=== PATIENT | male | born 1995 | race Caucasian/White ===

== ENCOUNTER 2022-10-06 09:00 | Emergency (ER) | payer OTHER ==
--- OUTSIDE RECORDS SUMMARY | 2022-10-06 09:03 | XMS REPORT | Continuity of Care Document ---
:1995 Author Organization [facility] t Address [address] [facility] [address] [place] [address] Care Team Providers Name Role Phone KIANNA LOWE Attending Clinician Unavailable Linda Greer Attending Clinician Lab, Adc Fam Pob I Attending Clinician Unavailable Kianna Oliver Attending Clinician Payers Payer Name Policy Type Policy Number Effective Date Expiration Date S [facility] - [id number] 2019 00:00:00 OUT OF STATE Problems Condition Condition Condition Status Onset Resolution Last Treating Co mments Source Name Details Category Date Date Treatment Clinician Date No known No known Disease Unive rs active active ity of problems problems [facility] Allergies, Adverse Reactions, Alerts Allergy Allergy Status Severity Reaction(s) Onset Inactive Treating Comm ents Source Name Type Date Date Clinician NO KNOWN Drug Active Univers ALLERGIE Class ity of S [facility] Social History Social Habit Start Date Stop Date Quantity Comments Source Sex Assigned At Uni versity [facility] Smoking Status Start Date Stop Date Source Unknown if ever smoked [facility] Medications Ordered Filled Start Stop Current Ordering Indication Dosage Frequency Signature Comments Components Source Medication Medication Date Date Medication? Clinician (SIG) Name Name DOXYCYCLINE 2017-0 Yes 100mg Take 1 Uni vers 100 mg 9- capsule by ity of capsule 00:00: mouth 2 (two) [facility] times [facility] daily. DOXYCYCLINE 2017-0 Yes 100mg Take 1 Uni vers 100 mg 9-01 capsule by ity of capsule 00:00: mouth 2 (two) Medical times [place] daily. Procedures This patient has no known procedures. Encounters Start End Encounter Admission Attending Care Care Encounter Source Date/Time Date/Time Type Type Clinicians Facility Department ID 2020-05-24 2020-05-24 Outpatient R ANENE, [facility] [id number] Univers 13:00:00 13:00:00 KIANNA morton [facility] 2020-03-18 2020-03-18 [facility] [id number] Univers 00:00:00 00:00:00 [facility] [id number] i ty of Surgical [id number] Jose Alejandro as Specialti [id number] Oh jade 370 [facility] 2020-03-07 2020-03-07 Laboratory Lab, Adc Fam Pob I [facility] [id number] Univers 11:50:35 12:10:35 Only Kianna Lowe [facility] [id number] ity [facility] [id number] Jose Alejandro as Professio [id number] Oh jade [facility] [address] [place] [address] 2020-03-07 2020-03-07 Outpatient Esa LOWE [facility] [id number] Univers 11:40:00 11:40:00 KIANNA morton [facility] Results This patient has no known results.
[2022-10-06 09:23] LABS: Absolute Lymphocytes (CBC) 1.7 K/uL (0.7-4.9); Hematocrit 50.7 % (39.6-49.0); Lymphocytes % 12.2 % (15.3-44.8); MCV 91.8 fL (80-100); MPV 8.4 fL (7.6-11.3); RBC Red Blood Cell Count 5.53 M/uL (4.33-5.43)
[2022-10-06] MEDS ORDERED: ONDANSETRON 4 MG/2 ML VIAL ONE (09:26)
[2022-10-06] MEDS ORDERED: MORPHINE 4 MG/ML SYR ONE (09:26)
[2022-10-06] MEDS ORDERED: NA CHLORIDE 0.9% 1,000 ML ONE (09:26)
[2022-10-06 09:39] LABS: Bilirubin Total 0.9 mg/dL (0.2-1.0); Potassium 4.1 mEq/L (3.5-5.1); Protein, Total 7.8 g/dL (6.4-8.2)
--- NOTE | 2022-10-06 10:24 | RAD REPORT ---
EXAM DESCRIPTION: CT - Abdomen Pelvis W Contrast - 10/06/2022 9:36 am CLINICAL HISTORY: abdominal pain COMPARISON: No comparisons TECHNIQUE: Thin cut axial CT imaging of the abdomen and pelvis was performed following intravenous a dministration of 100 mL Isovue 300. Multiplanar reformats were generated and reviewed. All CT scans are performed using dose optimization technique as appropriate and may include automated exposure control or mA/KV adjustment according to patient size. FINDINGS: No suspicious findings in the lung bases. The liver, spleen, and pancreas show no suspicious findings. Gallbladder and biliary tree are also wi thout suspicious finding. Symmetric renal function is seen with no hydronephrosis or radiopaque calculi. Multiple bilateral sd al cortical lesions, some of which approaching fluid density, although some lesions demonstrate densi ty above that of simple fluid, most notably a 1.8 centimeter left superior pole lesion. . No dilated bowel loops or bowel wall thickening. Submucosal fat deposition along most of the colon, c ould relate to sequelae of prior colitis, ultimately this is a nonspecific finding. No free air, free fluid or inflammatory stranding. Diastasis recti. No hernia, mass or bulky lymphadenopathy. The urin david bladder is without significant finding. No suspicious bony findings. IMPRESSION: No acute intra-abdominal process. Multiple bilateral renal cortical lesions, some of which demonstrate density above that of fluid. Add itional evaluation by renal mass protocol CT or MRI would be helpful to exclude suspicious cysts or m asses.
--- NOTE | 2022-10-06 11:59 | RAD REPORT ---
EXAM DESCRIPTION: US - Abdomen Exam Limited - 10/06/2022 10:47 am CLINICAL HISTORY: abdominal pain COMPARISON: Abdomen Pelvis W Contrast dated 10/06/2022 TECHNIQUE: Sonographic grayscale and color flow images of the right upper abdominal quadrant were obtained. FINDINGS: The gallbladder demonstrates no gallstones. No pericholecystic fluid or gallbladder wall t hickening. Sonographic Philippe sign was negative. The common bile duct is normal measuring 5 mm. The liver demonstrates no findings of intrahepatic biliary dilatation. Diffuse hepatic parenchymal hy perechogenicity suggesting steatosis. IMPRESSION: Diffuse hepatic steatosis. No abnormalities of the gallbladder or visualized biliary jerome ts.
--- NOTE | 2022-10-06 12:29 | EDPHYS ---
Physician Documentation [facility] Name: Rylan Zuleta Age: 26 yrs Sex: Male : 1995 Arrival Date: 10/06/2022 Time: 09:00 Bed 2 Private MD: ED Physician Harsh Sanches HPI: 10/06 09:07 This 26 yrs old Male presents to ER via Ambulatory with complaints of Abdominal Pain. [facility] 09:07 The patient presents with abdominal pain. Onset: The symptoms/episode began/occurred jmm acutely, this morning. The symptoms do not radiate. Is a 26-year-old male with history of depression the presents emerged part with complaints of lower abdominal pain beginning acutely this morning. Patient states he felt like it was gas initially. Patient had 1 episode of vomiting. Denies diarrhea. Denies fever. Denies surgical history. Historical: - Allergies: 09:11 No Known Allergies; ph 09:12 No Known Allergies; nj1 - Home Meds: 09:12 Buspirone Oral [Active]; nj1 - PMHx: 09:12 Depressive disorder; nj1 - PSHx: 09:12 None; nj1 - Immunization history:: Adult Immunizations unknown, Client reports receiving the 1st dose of the Covid vaccine. - Social history:: Smoking status: Reported history of juuling and/or vaping. ROS: 09:07 Constitutional: Negative for fever, chills, and weight loss, Cardiovascular: Negative jm for chest pain, palpitations, and edema, Respiratory: Negative for shortness of breath, cough, wheezing, and pleuritic chest pain. 09:07 Abdomen/GI: Positive for abdominal pain. 09:07 All other systems are negative. Exam: 09:07 Constitutional: This is a well developed, well nourished patient who is awake, alert, jmm and in no acute distress. Head/Face: atraumatic. Eyes: EOMI, no conjunctival erythema appreciated ENT: Moist Mucus Membranes Neck: Trachea midline, Supple Chest/axilla: Normal chest wall appearance and motion. Cardiovascular: Regular rate and rhythm. No edema appreciated Respiratory: Normal respirations, no respiratory distress appreciated 09:07 Back: Normal ROM Skin: General appearance color normal MS/ Extremity: Moves all extremities, no obvious deformities appreciated, no edema noted to the lower extremities Neuro: Awake and alert Psych: Behavior is normal, Mood is normal, Patient is cooperative and pleasant 09:07 Abdomen/GI: Inspection: abdomen appears normal, Bowel sounds: normal, Palpation: soft, mild abdominal tenderness, in the suprapubic area. Vital Signs: 09:05 BP 151 / 90; Pulse 84; Resp 18; Temp 98.1(O); Pulse Ox 97% on R/A; Weight 113.4 kg; nj1 Height 6 ft. 0 in. ; Pain 6/10; 11:09 BP 138 / 86; Pulse 82; Resp 15; Pulse Ox 97% ; Pain 0/10; jl7 11:58 BP 139 / 86; Pulse 74; Resp 15; Pulse Ox 98% ; jl7 12:30 BP 128 / 79; Pulse 73; Resp 15; Pulse Ox 100% ; jl7 09:05 Body Mass Index 33.91 (113.40 kg, 182.88 cm) nj1 09:05 Pain Scale: Adult nj1 11:09 Pain Scale: Adult jl7 MDM: 09:07 Patient medically screened. [facility] 12:17 Differential diagnosis: appendicitis, bowel obstruction, Pyelonephritis. Data reviewed: [facility] vital signs, nurses notes. I considered the following discharge prescriptions or medication management in the emergency department Medications were administered in the Emergency Department. See MAR. Counseling: I had a detailed discussion with the patient and/or guardian regarding: the historical points, exam findings, and any diagnostic results supporting the discharge/admit diagnosis, lab results, radiology results, the need for outpatient follow up, to return to the emergency department if symptoms worsen or persist or if there are any questions or concerns that arise at home. 10/06 09:11 Order name: CBC with Diff; Complete Time: 09:42 [facility] 10/06 09:11 Order name: CMP; Complete Time: 09:42 [facility] 10/06 09:11 Order name: Lipase; Complete Time: 09:42 [facility] 10/06 09:14 Order name: CT Abd/Pelvis - IV Contrast Only; Complete Time: 10:24 [facility] 10/06 10:25 Order name: US Abdomen Limited; Complete Time: 12:02 [facility] 10/06 09:11 Order name: IV Saline Lock; Complete Time: 09:12 [facility] 10/06 09:11 Order name: Labs collected and sent; Complete Time: 09:13 [facility] Administered Medications: 09:24 Drug: morphine IVP or IV 4 mg Route: IVP; Infused Over: 4 mins; Site: left antecubital; 7 09:45 Follow up: Response: No adverse reaction; Pain is decreased 09:24 Drug: Ondansetron IVP 4 mg Route: IVP; Site: left antecubital; 7 10:00 Follow up: Response: No adverse reaction 09:25 Drug: NS 0.9% IV 1000 ml Route: IV; Rate: 1 bolus; Site: left antecubital; 7 10:45 Follow up: IV Status: Completed infusion; IV Intake: 1000ml 7 Disposition Summary: 10/06/22 12:29 Discharge Ordered Location: Home [facility] Condition: Stable [facility] Diagnosis - Abdominal pain, Generalized [facility] Followup: [facility] - With: Harpreet Spence MD - When: 2 - 3 days - Reason: Recheck today's complaints, Continuance of care, Re-evaluation by your physician Discharge Instructions: - Discharge Summary Sheet [facility] - Abdominal Pain, Adult [facility] Forms: - Medication Reconciliation Form [facility] - Thank You Letter [facility] - Antibiotic Education [facility] - Prescription Opioid Use [facility] - [email or web address] [facility] Prescriptions: - ondansetron 4 mg Oral Tablet,disintegrating - take 1 tablet by ORAL route every 4-6 hours As needed; 20 tablet; Refills: 0, [facility] Product Selection Permitted - Pepcid 20 mg Oral Tablet - take 1 tablet by ORAL route once daily; 20 tablet; Refills: 0, Product [facility] Selection Permitted - dicyclomine 20 mg Oral Tablet - take 1 tablet by ORAL route 4 times per day As needed; 30 tablet; Refills: 0, [facility] Product Selection Permitted Signatures: Dispatcher [employer] Juanito Garcia PA PA [facility] Radha Mcfadden RN RN Rosa Schmidt RN RN jl7 Charlotte Vasquez RN RN nj1
--- NOTE | 2022-10-06 12:29 | ER ---
Nurse's Notes [facility] Name: Rylan Zuleta Age: 26 yrs Sex: Male : 1995 Arrival Date: 10/06/2022 Time: 09:00 Bed 2 Private MD: Diagnosis: Abdominal pain, Generalized Presentation: 10/06 09:05 Chief complaint: Patient states: Abdominal pain since this morning "woke me up". Pt nj1 states he vomited once, pain got somewhat better after that but still in pain. Denies nausea/diarrhea at this time. 09:05 Coronavirus screen: Vaccine status: Patient reports receiving the 1st dose of the Covid nj1 vaccine. Ebola Screen: Patient denies travel to an Ebola-affected area in the 21 days before illness onset. Initial Sepsis Screen: Does the patient meet any 2 criteria? No. Patient's initial sepsis screen is negative. Does the patient have a suspected source of infection? No. Patient's initial sepsis screen is negative. Risk Assessment: Do you want to hurt yourself or someone else? Patient reports no desire to harm self or others. Onset of symptoms was October 06, 2022. 09:05 Method Of Arrival: [facility] 09:05 Acuity: TREASURE 3 nj1 Historical: - Allergies: 09:11 No Known Allergies; ph 09:12 No Known Allergies; nj1 - Home Meds: 09:12 Buspirone Oral [Active]; nj1 - PMHx: 09:12 Depressive disorder; nj1 - PSHx: 09:12 None; nj1 - Immunization history:: Adult Immunizations unknown, Client reports receiving the 1st dose of the Covid vaccine. - Social history:: Smoking status: Reported history of juuling and/or vaping. Screenin:12 [facility] ED Fall Risk Assessment (Adult) History of falling in the last 3 months, ph including since admission No falls in past 3 months (0 pts) Confusion or Disorientation No (0 pts) Intoxicated or Sedated No (0 pts) Impaired Gait No (0 pts) Mobility Assist Device Used No (0 pt) Altered Elimination No (0 pt) Score/Fall Risk Level 0 - 2 = Low Risk Oriented to surroundings, Maintained a safe environment, Hourly rounding (assess needs \\T\\ fall precautionary measures) done. Abuse screen: Denies threats or abuse. Denies injuries from another. Nutritional screening: No deficits noted. Tuberculosis screening: No symptoms or risk factors identified. Assessment: 09:10 General: Appears in no apparent distress. uncomfortable, Behavior is cooperative, jl7 anxious. Pain: Complains of pain in right lower quadrant and left lower quadrant Pain currently is 6 out of 10 on a pain scale. Quality of pain is described as "Like being punched in the stomach." Pain began 3 hours ago. Is continuous. Cardiovascular: Patient's skin is warm and dry. Respiratory: Airway is patent Respiratory effort is even, unlabored, Respiratory pattern is regular, symmetrical. GI: Abdomen is round non-distended, Bowel sounds present X 4 quads. Abd is soft Abdomen is tender to palpation in right upper quadrant. : No signs and/or symptoms were reported regarding the genitourinary system. Derm: Skin is pink, warm \\T\\ dry. 10:15 Reassessment: Patient appears in no apparent distress at this time. Patient and/or jl7 family updated on plan of care and expected duration. Pain level reassessed. Patient is alert, oriented x 3, equal unlabored respirations, skin warm/dry/pink. Pain rated 2/10 at this time. Patient states feeling better. Patient states symptoms have improved. 11:00 Reassessment: Patient appears in no apparent distress at this time. Patient and/or jl7 family updated on plan of care and expected duration. Pain level reassessed. Patient is alert, oriented x 3, equal unlabored respirations, skin warm/dry/pink. Pt reports no pain "I don't feel anything while playing my game on my phone.". 12:00 Reassessment: Patient appears in no apparent distress at this time. No changes from jl7 previously documented assessment. Patient and/or family updated on plan of care and expected duration. Pain level reassessed. Patient is alert, oriented x 3, equal unlabored respirations, skin warm/dry/pink. 12:25 Reassessment: SHAYY Solomon at bedside discussing results and POC. 7 12:35 Reassessment: On discharge pt reported the ERP said "Nothing and to go somewhere else." jl7 Pt appears agitated when asked to elaborate pt states "He said he can't find any reason I was hurting today and to go to another doctor. Attending notified and will be to bedside to discuss with pt. 12:58 Reassessment: Dr. Sanches at bedside discussing results and POC. jl7 13:14 Reassessment: On discharge pt able to verbalize to follow up with GI for elevated liver jl7 enzymes, follow up with nephrology for evaluation of renal cysts and return to ED for increased in symptoms. Vital Signs: 09:05 BP 151 / 90; Pulse 84; Resp 18; Temp 98.1(O); Pulse Ox 97% on R/A; Weight 113.4 kg; nj1 Height 6 ft. 0 in. ; Pain 6/10; 11:09 BP 138 / 86; Pulse 82; Resp 15; Pulse Ox 97% ; Pain 0/10; jl7 11:58 BP 139 / 86; Pulse 74; Resp 15; Pulse Ox 98% ; jl7 12:30 BP 128 / 79; Pulse 73; Resp 15; Pulse Ox 100% ; jl7 09:05 Body Mass Index 33.91 (113.40 kg, 182.88 cm) nj1 09:05 Pain Scale: Adult nj1 11:09 Pain Scale: Adult jl7 ED Course: 09:02 Patient arrived in ED. rg4 09:02 Juanito Altamirano PA is PHCP. jm 09:02 Harsh Sanches MD is Attending Physician. [facility] 09:06 Radha Mcfadden, RN is Primary Nurse. ph 09:06 Primary Nurse role handed off by Radha Mcfadden, JAMAL jl 09:06 Rosa Mehta, RN is Primary Nurse. jl 09:10 Initial lab(s) drawn, by wi, sent to lab. Inserted saline lock: 20 gauge in left [facility] antecubital area, using aseptic technique. Blood collected. 09:12 Triage completed. nj1 09:12 Patient has correct armband on for positive identification. Bed in low position. Call light in reach. Side rails up X 1. Pulse ox on. NIBP on. Door closed. Noise minimized. 09:12 Arm band placed on Patient placed in an exam room. ph 09:37 CT Abd/Pelvis - IV Contrast Only In Process Unspecified. EDMS 10:49 US Abdomen Limited In Process Unspecified. EDMS 12:28 Harpreet Spence MD is Referral Physician. jm 13:06 No provider procedures requiring assistance completed. IV discontinued, intact, jl7 bleeding controlled, No redness/swelling at site. Pressure dressing applied. Administered Medications: 09:24 Drug: morphine IVP or IV 4 mg Route: IVP; Infused Over: 4 mins; Site: left antecubital; jl7 09:45 Follow up: Response: No adverse reaction; Pain is decreased jl7 09:24 Drug: Ondansetron IVP 4 mg Route: IVP; Site: left antecubital; jl7 10:00 Follow up: Response: No adverse reaction [facility] 09:25 Drug: NS 0.9% IV 1000 ml Route: IV; Rate: 1 bolus; Site: left antecubital; jl7 10:45 Follow up: IV Status: Completed infusion; IV Intake: 1000ml jl7 Medication: 09:12 VIS not applicable for this client. ph Intake: 10:45 IV: 1000ml; Total: 1000ml. 7 Outcome: 12:29 Discharge ordered by . walter 13:06 Discharged to home ambulatory. [facility] 13:06 Condition: stable 13:06 Discharge instructions given to patient, significant other, Instructed on discharge instructions, follow up and referral plans. medication usage, Demonstrated understanding of instructions, follow-up care, medications, Prescriptions given X 3. 13:16 Patient left the ED. jl7 Signatures: Dispatcher [employer] EDMS Juanito Altamirano PA PA jmm Hall, Patricia RN Renetta Tomlinson ph rg4 Rosa Mehta RN RN jl7 Charlotte Vasquez RN RN nj1
[2022-10-06 14:01] VITALS: TEMP 98.1
[2022-10-06 14:05] VITALS: BP 128/79; O2SAT 100
== END 2022-10-06 13:16 | disposition home or self-care (01) ==
LOC: ER 09:00
DX: R10.84 Generalized abdominal pain (principal)
CPT/HCPCS: 85025; 36415; 83690; 80053; 74177; 76705; Q9967; J2405; J7030

== ENCOUNTER 2023-08-23 04:35 | Emergency (ER) | payer OTHER ==
--- OUTSIDE RECORDS SUMMARY | 2023-08-23 04:37 | XMS REPORT | Continuity of Care Document ---
Author Name Unknown Address [address] [facility] [address] [place] [address] [facility] thconnect Address [address] [facility] [address] [place] [address] Care Team Providers Care Cook Sauce Name Role Phone KIANNA LOWE Attending Clinician Unavailable Linda Greer Attending Clinician [phone] Lab, Adc Fam Pob I Attending Clinician Unavailab Kianna Peralta Attending Clinician [phone] Payers Payer Name Policy Type Policy Number Effective Date Expirati on Date Source [facility] - OUT OF STATE [id number] 2019 00:00:00 Problems Condition Name Condition Details Condition Category Status Onset Date Resolution Date Last Treatment Date Treating Clinician Comments Source No known active problems No known active problems Disease [facility] Allergies, Adverse Reactions, Alerts Allergy Name Allergy Type Status Severity Reaction(s) Onset Date Inactive Date Treating Clinician Comments Source NO KNOWN ALLERGIE S Drug Class Active [facility] Social History Social Habit Start Date Stop Date Quantity Comments Source Sex Assigned At [facility] Smoking Status Start Date Stop Date Source Unknown if ever smoked [facility] Medications Ordered Medication Name Filled Medication Name Start Date Stop Date Current Medication? Ordering Clinician Indication Dosage Frequency Signature (SIG) Comments Components Source DOXYCYCLINE 100 mg capsule 12-12 00:00: 00 Yes 100mg Take 1 capsule by mouth 2 (two) times daily. [facility] Encounters Start Date/Time End Date/Time Encounter Type Admission Type Attending Clinicians Care Facility Care Department Encounter ID Source 2023-06-05 13:56:40 2023-06-05 13:56:40 Outpatient [facility] [id number] [facility] 2020-05-24 13:00:00 2020-05-24 13:00:00 Outpatient KIANNA BURKS [facility] [id number] [facility] 2020-03-18 00:00:00 2020-03-18 00:00:00 Telephone Linda Baxter [facility] Surgical Specialti [facility] ..[id number] [facility] 2020-03-07 11:50:35 2020-03-07 12:10:35 Laboratory Only Lab, Ad[facility]ob [facility] [address] ..[id number] [facility] 2020-03-07 11:40:00 2020-03-07 11:40:00 Outpatient KIANNA BURKS [facility] [id number] [facility]
--- NOTE | 2023-08-23 05:11 | ER ---
Nurse's Notes [facility] Name: Rylan Zuleta Age: 27 yrs Sex: Male : 1995 Arrival Date: 08/23/2023 Time: 04:35 Bed 4 Private MD: Diagnosis: Streptococcal pharyngitis Presentation: 08/22 04:52 Chief complaint: Patient states: Sore throat onset a few days ago. pt reports having cm10 productive cough with blood tinged phlegm. Pt denies fevers. Coronavirus screen: Client denies travel out of the [place] in the last 14 days. At this time, the client does not indicate any symptoms associated with coronavirus-19. Ebola Screen: Patient denies travel to an Ebola-affected area in the 21 days before illness onset. No symptoms or risks identified at this time. Initial Sepsis Screen:. Risk Assessment: Do you want to hurt yourself or someone else? Patient reports no desire to harm self or others. Onset of symptoms was August 23, 2023. 04:52 Method Of Arrival: Ambulatory cm10 04:52 Acuity: TREASURE 4 cm10 05:31 Initial Sepsis Screen: Does the patient meet any 2 criteria? No. Patient's initial ha1 sepsis screen is negative. Does the patient have a suspected source of infection? No. Patient's initial sepsis screen is negative. Triage Assessment: 04:54 General: Appears in no apparent distress. comfortable. General: Behavior is calm, cm10 cooperative. Pain: Complains of pain in Throat. EENT: No deficits noted. Throat is reddened Reports pain when swallowing. Neuro: No deficits noted. Level of Consciousness is awake, alert, obeys commands, Oriented to person, place, time, situation, Appropriate for age. Respiratory: No deficits noted. Airway is patent Respiratory effort is even, unlabored, Respiratory pattern is regular, symmetrical. Respiratory: Reports cough that is productive. Musculoskeletal: No deficits noted. Range of motion: intact in all extremities. Historical: - Allergies: 04:53 No Known Allergies; cm10 - PMHx: 04:53 depressive disorder; cm10 - Immunization history:: Adult Immunizations up to date. - Infectious Disease History:: Denies. - Social history:: Smoking status: unknown. - Family history:: not pertinent. Screenin:55 [facility] ED Fall Risk Assessment (Adult) History of falling in the last 3 months, jb4 including since admission No falls in past 3 months (0 pts) Confusion or Disorientation No (0 pts) Intoxicated or Sedated No (0 pts) Impaired Gait No (0 pts) Mobility Assist Device Used No (0 pt) Altered Elimination No (0 pt) Score/Fall Risk Level 0 - 2 = Low Risk Oriented to surroundings, Maintained a safe environment. Abuse screen: Denies threats or abuse. Nutritional screening: No deficits noted. Tuberculosis screening: No symptoms or risk factors identified. Assessment: 04:58 General: Appears in no apparent distress. uncomfortable, Behavior is calm, cooperative, jb4 appropriate for age. Pain: Complains of pain in throat Pain does not radiate. Pain currently is 6 out of 10 on a pain scale. Neuro: Level of Consciousness is awake, alert, obeys commands, Oriented to person, place, time, situation. Cardiovascular: Patient's skin is warm and dry. Respiratory: Airway is patent Respiratory effort is even, unlabored, Respiratory pattern is regular, symmetrical. EENT: Throat is reddened with gag reflex present. Derm: Skin is intact, Skin is pink, warm \T\ dry. Musculoskeletal: Circulation, motion, and sensation intact. Range of motion: intact in all extremities. Vital Signs: 04:52 Weight 108.86 kg; Height 6 ft. 0 in. ; Pain 4/10; cm10 04:55 BP 154 / 93; Pulse 102; Resp 16; Temp 98.4(TE); Pulse Ox 99% on R/A; Weight 108.86 kg; jb4 Height 6 ft. 0 in. ; 05:20 BP 150 / 92; Pulse 92; Resp 17 S; Temp 98; Pulse Ox 99% ; ha1 04:55 Body Mass Index 32.55 (108.86 kg, 182.88 cm) jb4 04:52 Pain Scale: Adult cm10 ED Course: 04:39 Patient arrived in ED. gm2 04:46 Bala Ag MD is Attending Physician. rt 04:53 Triage completed. cm10 04:54 Cameron Lui RN is Primary Nurse. jb4 04:54 Arm band placed on Patient placed in an exam room, on a stretcher, on pulse oximetry. cm10 04:55 Patient has correct armband on for positive identification. Bed in low position. Call jb4 light in reach. Side rails up X 1. Provided Education on: plan of care. 05:31 No provider procedures requiring assistance completed. Patient did not have IV access ha1 during this emergency room visit. Administered Medications: 05:18 Drug: Amoxicillin-Clavulanate PO 875 mg PO once Route: PO; ha1 05:31 Follow up: Response: No adverse reaction ha1 05:19 Drug: Ketorolac IM 15 mg IM once Route: IM; Site: left deltoid; ha1 05:32 Follow up: Response: No adverse reaction ha1 05:20 Drug: Dexamethasone IM 10 mg IM once Route: IM; Site: right deltoid; ha1 05:32 Follow up: Response: No adverse reaction ha1 Medication: 04:55 VIS not applicable for this client. jb4 Outcome: 05:10 Discharge ordered by . rt 05:31 Discharged to home ambulatory, ha1 05:31 Condition: stable 05:31 Discharge instructions given to patient, Instructed on discharge instructions, follow up and referral plans. medication usage, Demonstrated understanding of instructions, follow-up care, medications, Prescriptions given X 1, 05:32 Patient left the ED. ha1 Signatures: Cameron Lui RN RN jb4 Amy De La Rosa RN RN ha1 Bala Ag MD MD rt Thao Pino RN RN cm10 Yadi Joseph 2
--- NOTE | 2023-08-23 05:11 | EDPHYS ---
Physician Documentation [facility] Name: Rylan Zuleta Age: 27 yrs Sex: Male : 1995 Arrival Date: 08/23/2023 Time: 04:35 Bed 4 Private MD: ED Physician Bala Ag HPI: 08/22 06:17 This 27 yrs old Male presents to ER via Ambulatory with complaints of Sore Throat. rt 06:17 Patient presents to the ED with sore throat for about 4 days. Reports a hoarse voice. rt Denies difficulty swallowing. Reports mild cough, no difficulty breathing. Denies other acute complaints, symptoms are mild in severity, no other aggravating or alleviating factors.. Historical: - Allergies: 04:53 No Known Allergies; cm10 - PMHx: 04:53 depressive disorder; cm10 - Immunization history:: Adult Immunizations up to date. - Infectious Disease History:: Denies. - Social history:: Smoking status: unknown. - Family history:: not pertinent. ROS: 06:17 Constitutional: Negative for fever, chills, and weight loss, Abdomen/GI: Negative for rt abdominal pain, nausea, vomiting, diarrhea, and constipation, Skin: Negative for injury, rash, and discoloration, Neuro: Negative for headache, weakness, numbness, tingling, and seizure, 06:17 ENT: Positive for sore throat, Negative for rhinorrhea, 06:17 Respiratory: Positive for cough, Negative for shortness of breath, Exam: 06:17 Constitutional: This is a well developed, well nourished patient who is awake, alert, rt and in no acute distress. Head/Face: Normocephalic, atraumatic. Chest/axilla: Normal chest wall appearance and motion. Nontender with no deformity. No lesions are appreciated. Cardiovascular: Regular rate and rhythm with a normal S1 and S2. No gallops, murmurs, or rubs. Normal PMI, no JVD. No pulse deficits. Respiratory: Lungs have equal breath sounds bilaterally, clear to auscultation and percussion. No rales, rhonchi or wheezes noted. No increased work of breathing, no retractions or nasal flaring. Abdomen/GI: Soft, non-tender, with normal bowel sounds. No distension or tympany. No guarding or rebound. No evidence of tenderness throughout. Skin: Warm, dry with normal turgor. Normal color with no rashes, no lesions, and no evidence of cellulitis. MS/ Extremity: Pulses equal, no cyanosis. Neurovascular intact. Full, normal range of motion. 06:17 ENT: Posterior pharyngeal erythema, mild exudates, no tonsillar hypertrophy, uvula is midline. Vital Signs: 04:52 Weight 108.86 kg; Height 6 ft. 0 in. ; Pain 4/10; cm10 04:55 BP 154 / 93; Pulse 102; Resp 16; Temp 98.4(TE); Pulse Ox 99% on R/A; Weight 108.86 kg; jb4 Height 6 ft. 0 in. ; 05:20 BP 150 / 92; Pulse 92; Resp 17 S; Temp 98; Pulse Ox 99% ; ha1 04:55 Body Mass Index 32.55 (108.86 kg, 182.88 cm) jb4 04:52 Pain Scale: Adult cm10 MDM: 04:59 Patient medically screened. rt 06:17 Differential diagnosis: Strep pharyngitis, viral syndrome. Data reviewed: vital signs, rt nurses notes. Test considered but Not performed: Labs: Oropharynx has strong appearance of strep pharyngitis, will treat empirically for strep throat. Patient is agreeable to forego testing. 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 Counseling: I had a detailed discussion with the patient and/or guardian regarding the historical points, exam findings, and any diagnostic results supporting the discharge/admit diagnosis, the need for outpatient follow up, to return to the emergency department if symptoms worsen or persist or if there are any questions or concerns that arise at home. Administered Medications: 05:18 Drug: Amoxicillin-Clavulanate PO 875 mg PO once Route: PO; ha1 05:31 Follow up: Response: No adverse reaction ha1 05:19 Drug: Ketorolac IM 15 mg IM once Route: IM; Site: left deltoid; ha1 05:32 Follow up: Response: No adverse reaction ha1 05:20 Drug: Dexamethasone IM 10 mg IM once Route: IM; Site: right deltoid; ha1 05:32 Follow up: Response: No adverse reaction ha1 Disposition Summary: 08/23/23 05:10 Discharge Ordered Notes: Location: Home rt Problem: new rt Symptoms: are unchanged rt Condition: Stable rt Diagnosis - Streptococcal pharyngitis rt Followup: rt - With: Private Physician - When: 2 - 3 days - Reason: Discharge Instructions: - Discharge Summary Sheet rt - Strep Throat, Adult rt Forms: - Medication Reconciliation Form rt - Antibiotic Education rt - Prescription Opioid Use rt - Patient Portal Instructions rt - Leadership Thank You Letter rt Prescriptions: - Augmentin 875-125 mg Oral Tablet - take 1 tablet ORAL route every 12 hours for 10 days; 20 tablet; Refills: 0, rt Product Selection Permitted Signatures: Amy De La Rosa RN RN ha1 Bala Ag MD MD rt Thao Pino RN RN cm10
[2023-08-23] MEDS ORDERED: AMOX/K CLAV 875 MG TAB ONE (05:14)
[2023-08-23] MEDS ORDERED: dexAMETHasone 10 MG/ML VIAL ONE (05:15)
[2023-08-23] MEDS ORDERED: KETOROLAC 30 MG/ML INJ ONE (05:15)
[2023-08-23 05:47] VITALS: BP 150/92; TEMP 98; O2SAT 99
== END 2023-08-23 05:32 | disposition home or self-care (01) ==
LOC: ER 04:35
DX: J02.0 Streptococcal pharyngitis (principal)
CPT/HCPCS: 96372; 99284; J1100